=== PATIENT | male | born 1990 | race Caucasian/White ===

== ENCOUNTER 2017-12-29 09:18 | Day surgery (SDC) | payer OTHER ==
[~2017-12-29 09:18] MED LIST: CEFAZOLIN 2 GM/50 ML (PMX) 50 ML IVPB; SUCCINYLCHOLINE CHLORIDE 100 MG/5 ML SYG IV
[2017-12-29] MEDS: SOD CHLORIDE 0.9% 1,000 ML IV (10:00)
[2017-12-29] MEDS ORDERED: PROPOFOL 20 ML (10:57)
[2017-12-29] MEDS ORDERED: NEOSTIGMINE 3 MG/3 ML SYRINGE (10:57)
[2017-12-29] MEDS ORDERED: GLYCOPYRROLATE 0.4 MG INJ (10:57)
[2017-12-29] MEDS ORDERED: ROCURONIUM 50 MG INJ (10:57)
[2017-12-29] MEDS ORDERED: CEFAZOLIN 1 GM INJ (10:57)
[2017-12-29] MEDS ORDERED: ONDANSETRON 4 MG INJ (11:00)
[2017-12-29] MEDS ORDERED: MIDAZOLAM 1 MG/ML 2 ML INJ (11:00)
[2017-12-29] MEDS ORDERED: FENTAnyl 50 MCG/ML VIAL ×2 (11:00→11:45)
[2017-12-29] MEDS ORDERED: DEXAMETHASONE 4 MG/ML 1 ML INJ (11:00)
[2017-12-29] MEDS ORDERED: KETOROLAC 30 MG INJ (11:37)
[2017-12-29] MEDS ORDERED: DIPHENHYDRAMINE 50 MG INJ IV (12:00)
[2017-12-29] MEDS ORDERED: OXYCODONE/ACETAMINOPHEN (5/325) TAB PO (12:00)
[2017-12-29] MEDS ORDERED: LABETALOL HCL 20MG INJ IV (12:00)
[2017-12-29] MEDS ORDERED: MIDAZOLAM 1 MG/ML 2 ML INJ IV (12:00)
[2017-12-29] MEDS ORDERED: hydrALAzine 20 MG INJ IV (12:00)
[2017-12-29] MEDS ORDERED: HYDROmorphONE 1 MG/5 ML IV SYRINGE IV (12:00)
[2017-12-29] MEDS ORDERED: FENTAnyl 50 MCG/ML VIAL IV ×3 (12:00)
[2017-12-29] MEDS ORDERED: MEPERIDINE 25 MG INJ IV (12:00)
[2017-12-29] MEDS ORDERED: IPRATROPIUM (NEB) 0.5 MG/2.5 ML AMP HHN (12:00)
[2017-12-29] MEDS ORDERED: TRIMETHOBENZAMIDE 100 MG/ML VIAL IM (12:00)
[2017-12-29] MEDS ORDERED: ONDANSETRON 4 MG INJ IV ×2 (12:00→12:30)
[2017-12-29] MEDS ORDERED: EPHEDrine SULFATE 50 MG/5 ML SYG IV (12:00)
[2017-12-29] MEDS ORDERED: ALBUTEROL 0.083% (NEB) 2.5 MG/3 ML AMP HHN (12:00)
[2017-12-29] MEDS: BUPIVACAINE 0.25%/EPI (SDV) 30 ML INJ (12:04)
[2017-12-29] MEDS ORDERED: SUGAMMADEX SODIUM 200 MG/2 ML VIAL IV (12:15)
[2017-12-29] MEDS ORDERED: KETOROLAC 30 MG INJ IV (12:30)
[2017-12-29] MEDS ORDERED: HYDROCODONE/APAP (5/325) TAB PO ×2 (12:30)
[2017-12-29] MEDS ORDERED: morphine 2 MG INJ IV (12:30)
[2017-12-29] MEDS ORDERED: IBUPROFEN 600 MG TAB PO (12:30)
[2017-12-29] MEDS: HYDROmorphONE 1 MG/5 ML IV SYRINGE IV ×2 (13:03→13:30)
[2017-12-29] MEDS: OXYCODONE/ACETAMINOPHEN (5/325) TAB PO (14:17)
[2017-12-30] MEDS ORDERED: INFLUENZA VIRUS VACCINE 0.5 ML (DISPENSING) IM* (09:00)
== END 2017-12-29 15:25 | disposition home or self-care (01) ==
LOC: SDS 09:18
DX: K60.3 Anal fistula (principal); K64.4 Residual hemorrhoidal skin tags
CPT/HCPCS: 46258; 88304